=== PATIENT | male | born 1955 | race Caucasian/White ===

== ENCOUNTER → 2023-01-08 | Emergency (ER) | payer BC ==
[~2023-01-08] VITALS: Ht 167.6 cm; Wt 60.0 kg
[~2023-01-08] MED LIST: CefTRIAXone 500MG IM Kit w/LIDOcaine IM ONE; LEVO-65 PO; levoFLOXACIN 250mg tablet PO ONE
[2023-01-08 15:04] VITALS: BP 125/68; RESP 18; TEMP 99
[2023-01-08 15:25] VITALS: O2SAT 94
[2023-01-08 15:57] LABS: BILIRUBIN,URINE NEGATIVE (Neg); CLARITY,URINE CLEAR (Clear); COLOR,URINE YELLOW (Yellow); GLUCOSE, URINE >=1000 mg/dl (Neg); KETONES,URINE NEGATIVE (Neg); LEUKOCYTE ESTERASE ,URINE NEGATIVE (Neg); NITRITES, URINE NEGATIVE (Neg); OCCULT BLOOD,URINE NEGATIVE (Neg); PH,URINE 5.5 (4.8-8.0); PROTEIN,URINE NEGATIVE (Neg); UROBILINOGEN,URINE 0.2 E.U/dL (0.2-1.0)
[2023-01-08 16:06] LABS: UA COLLECTION TYPE CLN CATCH MIDSTREAM
[2023-01-08 16:19] LABS: BACTERIA,URINE NONE SEEN /HPF (Neg); RBC,URINE NONE SEEN /HPF (0-2); WBC,URINE NONE SEEN /HPF (0-4)
[2023-01-08 16:20] LABS: SQUAMOUS EPITHELIAL CELL,UR NONE SEEN /LPF (FEW); YEAST FEW /HPF (NEGATIVE)
== END | disposition home or self-care (01) ==
LOC: ER 14:57
DX: N45.1 Epididymitis (principal); Z88.8 Allergy status to other drugs, medicaments and biological substances
CPT/HCPCS: 71045; 76870; 81001; 93976; 96372; 99285; J0696; 99284

== ENCOUNTER 2024-06-14 12:45 | Emergency (ER) | payer BC ==
[~2024-06-14] VITALS: Ht 170.2 cm; Wt 55.4 kg
[2024-06-14 12:48] VITALS: TEMP 97.8
[2024-06-14 14:00] VITALS: BP 174/65; PULSE 72; RESP 15; O2SAT 98
== END 2024-06-14 14:02 | disposition home or self-care (01) ==
LOC: ER 12:46
DX: S93.401A Sprain of unspecified ligament of right ankle, initial encounter (principal); M79.661 Pain in right lower leg; W55.12XA Struck by horse, initial encounter; Y93.89 Activity, other specified; Y92.89 Other specified places as the place of occurrence of the external cause; Y99.8 Other external cause status
CPT/HCPCS: 73590; 99283

== ENCOUNTER → 2024-06-17 | Emergency (ER) | payer BC ==
[~2024-06-17] VITALS: Ht 167.6 cm; Wt 65.0 kg
[2024-06-17 11:05] VITALS: BP 156/78; PULSE 85; RESP 14; TEMP 97.8; O2SAT 98
== END | disposition left against medical advice (07) ==
LOC: ER 11:02
DX: S93.401A Sprain of unspecified ligament of right ankle, initial encounter (principal); Z88.8 Allergy status to other drugs, medicaments and biological substances; X58.XXXA Exposure to other specified factors, initial encounter; Y93.89 Activity, other specified; Y92.89 Other specified places as the place of occurrence of the external cause; Y99.8 Other external cause status
CPT/HCPCS: 73610; 99283; L4360